=== PATIENT | male | born 2000 | race Caucasian/White ===

== ENCOUNTER 2019-09-12 02:36 | Emergency (ER) | payer BC, OTHER ==
[2019-09-12] MEDS ORDERED: Acetaminophen 500 MG TAB ONE (03:52)
[2019-09-12] MEDS ORDERED: Ibuprofen 800 MG TAB ONE (03:52)
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
== END 2019-09-12 04:10 | disposition home or self-care (01) ==
LOC: ERS 02:36
DX: S02.602A Fracture of unspecified part of body of left mandible, initial encounter for closed fracture (principal); F41.9 Anxiety disorder, unspecified; Y04.0XXA Assault by unarmed brawl or fight, initial encounter
CPT/HCPCS: 70100

== ENCOUNTER 2019-09-12 15:48 | Day surgery (SDC) | payer OTHER ==
[~2019-09-12 15:48] MED LIST: Dexamethasone 20 MG/5 ML VIAL ONE; Lidocaine 1% PF 5 ML VIAL ONE; Ondansetron PF 4 MG/2 ML Vial ONE; PROPOFOL 200 MG/20 ML VIAL ONE; Rocuronium Bromide 10 MG/ML (10ML VIAL) ONE
[2019-09-12] MEDS ORDERED: Lidocaine 1% w/Epinephrine 1:100K 20 ML VIAL ONE (19:16)
[2019-09-12] MEDS ORDERED: Bacitracin Zinc Ointment 30 gm TUBE ONE (19:17)
[2019-09-12] MEDS ORDERED: Chlorhexidine Gluconate 15 ML UDCUP SSP ONE (19:17)
[2019-09-12] MEDS ORDERED: Fentanyl 100 MCG/2 ML VIAL ONE (19:35)
[2019-09-12] MEDS ORDERED: HYDROmorphone 0.5 MG/0.5 ML SYRINGE ONE (19:35)
[2019-09-12] MEDS ORDERED: Midazolam HCl 2 mg/2 ml Vial ONE (19:35)
[2019-09-12] MEDS ORDERED: Clindamycin/D5W 900 mg/50 ml Premix Bag ONE (19:36)
[2019-09-12] MEDS ORDERED: Lidocaine 2% Jelly 5 ML TUBE ONE (19:36)
[2019-09-12] MEDS ORDERED: AFRIN NASAL MIST 15 ML BOT ONE (19:36)
[2019-09-12] MEDS ORDERED: SUGAMMADEX SODIUM 500 MG/5 ML VIAL ONE (21:05)
[2019-09-12] MEDS ORDERED: Meperidine HCl/PF 25 MG/ML VIAL ONE (21:29)
[2019-09-12] MEDS ORDERED: Ketorolac Tromethamine 30 MG/ML VIAL ONE (21:46)
[2019-09-12] MEDS ORDERED: Hydrocodone-Acetamin 15 ML UDCUP ONE (21:58)
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
== END 2019-09-12 22:45 | disposition home or self-care (01) ==
LOC: EEVIPCON 15:48 → SDC 15:48
PROVIDERS: ATTEND Dentist Oral and Maxillofacial Surgery
PROC: 0NSVXZZ Reposition Left Mandible, External Approach (ICD-10-PCS; principal; 2019-09-12)
DX: S02.622A Fracture of subcondylar process of left mandible, initial encounter for closed fracture (principal); S02.602A Fracture of unspecified part of body of left mandible, initial encounter for closed fracture; F17.290 Nicotine dependence, other tobacco product, uncomplicated; W51.XXXA Accidental striking against or bumped into by another person, initial encounter
CPT/HCPCS: J0690; J1100; J1170; J1885; J2001; J2175; J2250; J2405; J2704; J3010; J3490